=== PATIENT | female | born 1950 | race Two or more races ===

== ENCOUNTER 2019-08-02 22:51 | Emergency (ER) | payer OTHER ==
[2019-08-02 23:24] VITALS: TEMP 98.5; BMI 30.9
--- NOTE | 2019-08-02 23:38 | PDOC ---
History of Present Illness - General Chief Complaint: Blood Pressure Problem Stated Complaint: HYPERTENTION Time Seen by Provider: 08/02/19 23:37 - History of Present Illness Initial Comments: 08/02/19 23:50 The patient is a 69 year old female with a history of HTN, HLD, DM who presents for evaluation of high blood pressure and headache. The patient is accompanied by family who assisted in providing the history. They report that the patient had a gradual onset headache today and felt that her blood pressure was high. They check the patient's blood pressure at home and noted it to be elevated to 180 systolic prompting their presentation to the ED for further evaluation. They note that the patient has not taken her blood pressure medication in over 1 month and does not know what her medication is. She otherwise denies fevers, chills, SOB, chest pain, nausea, vomiting, abdominal pain, numbness, tingling, weakness, or changes with urination or bowel movements. Past History - Past Medical History Allergies/Adverse Reactions: Allergies Allergy/AdvReac Type Severity Reaction Status Date / Time No Known Allergies Allergy Verified 08/02/19 23:15 Home Medications: Ambulatory Orders Hydrochlorothiazide 12.5 mg PO DAILY #5 tablet 08/03/19 COPD: No Diabetes: Yes HTN: Yes Hypercholesterolemia: Yes - Psycho Social/Smoking Cessation Hx Smoking History: Current every day smoker Have you smoked in the past 12 months: Yes Number of Cigarettes Smoked Daily: 10 Information on smoking cessation initiated: No Hx Alcohol Use: No Drug/Substance Use Hx: No Review of Systems - Review of Systems Comments:: 08/02/19 23:54 Constitutional: No fevers, chills, fatigue, malaise HEENT: No Rhinorrhea, nasal congestion, visual changes Cardiovascular: No chest pain, syncope, palpitations, lightheadedness Respiratory: No Cough, SOB, Hemoptysis, Gastrointestinal: No Abdominal pain, Nausea, Vomiting, Constipation, Diarrhea, Melena Genitourinary: No Dysuria, Frequency, Urgency, Hesitancy, Hematuria, Flank pain Musculoskeletal: No Myalgia, arthralgia Skin: No rashes, itching, bruising, pallor Neurologic: Headache. No Dizziness, Numbness, Weakness, or Tingling Psychiatric: No Hallucinations. No SI or HI *Physical Exam - Vital Signs Last Vital Signs Temp Pulse Resp BP Pulse Ox 98.5 F 73 17 181/73 H 100 08/02/19 23:10 08/02/19 23:10 08/02/19 23:10 08/02/19 23:10 08/02/19 23:10 - Physical Exam 08/02/19 23:54 General Appearance: Nourished. No Apparent Distress HEENT: EOMI, KAYLA. No Pharyngeal Erythema, Tonsillar Exudate, Tonsillar Erythema Neck: No Cervical Lymphadenopathy Respiratory/Chest: Lungs Clear, Normal Breath Sounds. No Crackles, Rales, Rhonchi, Wheezing Cardiovascular: Regular Rhythm, Regular Rate. No Murmur, Gallops, Rubs Gastrointestinal/Abdominal: Normal Bowel Sounds, Soft. No Guarding, Rebound, Tenderness Musculoskeletal: No CVA Tenderness Extremity: Normal Capillary Refill Integumentary: Normal Color, Dry, Warm Neurologic: utilization management manager II-XII NML intact, Fully Oriented, Alert, Normal Mood/Affect, Normal Response, Motor Strength 5/5. Heart Score/ECG Review #1 ECG reviewed & interpreted by me at: 23:54 08/02/19 23:54 HR 67 [place] 156 QRS 84 QTc 429 Normal Sinus Rhythm No acute ST changes ED Treatment Course - LABORATORY CBC & Chemistry Diagram: 08/03/19 00:45 08/03/19 00:45 Medical Decision Making - Medical Decision Making 08/02/19 23:55 The patient is a 69 year old female with a history of HTN, HLD, DM who presents for evaluation of high blood pressure and headache. Given the patient's history and physical exam, we will obtain a cbc, cmp, troponin, ekg, to evaluate further. We will treat with hydrochlorothiazide and continue to monitor and reassess while here in the ED. 08/03/19 02:44 CBC, cmp, troponin were unremarkable. The patient was reassessed and reports improvement in their symptoms. We are comfortable discharging the patient home in stable condition. Patient and family made aware of impression and plan, return precautions discussed including but not limited to worsening pain or symptoms, fevers, or signs of infection, chest pain, respiratory distress, inability to tolerate oral intake, dehydration, syncope, or neurologic changes. The patient is to follow up with PMD as recommended within 1 week, follow up information provided and the patient will call for an appointment. The patient is to take medications as instructed for duration of time and continue with supportive care, avoid triggers and precipitants. Patient is safe for outpatient follow-up. Discharge - Discharge Information Problems reviewed: Yes Clinical Impression/Diagnosis: Hypertension Qualifiers: Hypertension type: unspecified Qualified Code(s): I10 - Essential (primary) hypertension Condition: Stable Disposition: HOME - Admission No - Additional Discharge Information Prescriptions: Hydrochlorothiazide 12.5 mg PO DAILY #5 tablet - Follow up/Referral Referrals: ON STAFF,NOT [Primary Care Provider] - - Patient Discharge Instructions Patient Printed Discharge Instructions: DI for High Blood Pressure Additional Instructions: 1) Please follow-up with your primary care doctor in the next 2-3 days. Please call tomorrow to schedule a follow up appointment. If you cannot follow up with your doctor within 1 week please return to the Emergency Department for any urgent issues. 2) Your laboratory results were normal here in the ER. 3) If you have any worsening of symptoms or any other concerns, please return to the ER immediately. Return if worsening symptoms including fevers, headache, vomiting, visual or hearing disturbances, abdominal pain, chest pain, shortness of breath, syncope, dehydration, inability to take things by mouth/vomiting, altered mental status, or worsening concerning symptoms. 4) Please continue taking your home medications as directed. Your medications on discharge include Hydrochlorothiazide . Side effects may include upset stomach, abdominal pain, vomiting, or diarrhea. Do not drink alcohol with your medications. - Post Discharge Activity
[2019-08-02] MEDS ORDERED: ACETAMINOPHEN 1000 MG/100 ML VIAL (NON FORMULARY) IVPB ONE (23:56)
[2019-08-03] MEDS ORDERED: HYDROCHLOROTHIAZIDE 12.5 MG CAPSULE (FP) PO ONE ×2 (00:49→23:48)
--- NOTE | 2019-08-03 00:50 | PDOC ---
Attending Attestation - Resident Resident Name: Jules Sharp - ED Attending Attestation I have performed the following: I have examined & evaluated the patient, The case was reviewed & discussed with the resident, I agree w/resident's findings & plan, Exceptions are as noted - HPI HPI: 08/03/19 04:00 See HPI - Physicial Exam PE: 08/03/19 04:00 Agree with documented exam - Medical Decision Making 08/03/19 04:00 69F c/o headache in context of elevated blood pressure. HEATON is non-novel, non- exertional, gradual onset, slow progression HEATON unlikely 2/2 bleeding or mass f/u labs, ekg symptomatic tx dispo per clinical course No signs of end organ damage, symptomatically improved dc
[2019-08-03 01:43] LABS: BASO % 0.5 % (0-2.0); EOS % 2.4 % (0-4.5); HEMATOCRIT 37.8 % (32.4-45.2); HEMOGLOBIN 12.5 GM/dL (10.7-15.3); MCH 29.9 pg (25.7-33.7); MCHC 33.1 g/dl (32.0-36.0); MEAN CELL VOLUME 90.4 fl (80-96); MONO % 8.2 % (3.8-10.2); NEUT % 47.9 % (42.8-82.8); PLATELET COUNT 245 K/MM3 (134-434); RBC 4.18 M/mm3 (3.60-5.2); RDW 13.9 % (11.6-15.6); WHITE BLOOD COUNT 10.7 K/mm3 (4.0-10.0)
[2019-08-03 01:59] LABS: ALBUMIN 3.5 g/dl (3.4-5.0); BILIRUBIN,TOTAL 0.3 mg/dL (0.2-1); CALCIUM 9.6 mg/dL (8.5-10.1); CREATININE 0.6 mg/dL (0.55-1.3); POTASSIUM 4.3 mmol/L (3.5-5.1)
[2019-08-03 06:41] VITALS: BP 158/78; PULSE 87
--- NOTE | 2019-08-03 15:09 | EKG ---
Test Reason : Blood Pressure : / mmHG Vent. Rate : 067 BPM Atrial Rate : 067 BPM P-R Int : 156 ms QRS Dur : 084 ms QT Int : 406 ms P-R-T Axes : 065 043 032 degrees QTc Int : 429 ms NORMAL SINUS RHYTHM NO PREVIOUS ECGS AVAILABLE Confirmed by CAMRON THOMPSON MD ([id number]) on 08/03/2019 3:08:38 PM Referred By: Confirmed By:CAMRON THOMPSON MD
== END 2019-08-03 03:21 | disposition home or self-care (01) ==
LOC: JER 22:51
PROC: 3E033NZ Introduction of Analgesics, Hypnotics, Sedatives into Peripheral Vein, Percutaneous Approach (ICD-10-PCS; principal; 2019-08-02)
DX: I10 Essential (primary) hypertension (principal); E78.5 Hyperlipidemia, unspecified; E11.9 Type 2 diabetes mellitus without complications
CPT/HCPCS: 36415; 80053; 82550; 84484; 85025; 93005; 93010; 99284-25; J0131